=== PATIENT | male | born 1965 | race African-American/Black ===

== ENCOUNTER 2018-08-29 18:24 | Emergency (ER) | payer SELFPAY ==
[2018-08-29 18:32] VITALS: BP 118/83
[2018-08-29] MEDS ORDERED: ONDANSETRON 4 MG TAB.RAPDIS PO ONE (19:01)
[2018-08-29] MEDS ORDERED: ACETAMINOPHEN 325 MG TABLET PO ONE (19:11)
--- NOTE | 2018-08-29 19:11 | ER Document Report ---
HPI - HPI Time Seen by Provider: 08/29/18 18:51 Pain Level: 3 Notes: Patient is a 52-year-old male no significant past medical history who presents to the ED complaining of left medial ankle pain status post injury prior to arrival. Patient was wrestling with a heavy weights at practice when he injured his left ankle. Patient is not sure exactly what happened but may have twisted it. Patient states that he heard a pop and has had pain since then. Patient states that he is unable to weight-bear because of the pain. Pain does not radiate otherwise. Denies any drug allergies. No other concerns or complaints. Denies any headache, fever, head injury, neck pain, URI, sore throat, chest pain, palpitations, syncope, cough, shortness of breath, wheeze, dyspnea, abdominal pain, nausea/vomiting/diarrhea, urinary retention, dysuria, hematuria, loss of control of bowel or bladder, numbness/tingling, muscle paralysis, or rash. - ROS Systems Reviewed and Negative: Yes All other systems reviewed and negative - MUSCULOSKELETAL Musculoskeletal: REPORTS: Extremity pain - L ankle Past Medical History - Social History Smoking Status: Smoker,Current Status Unk Chew tobacco use (# tins/day): No Frequency of alcohol use: None Drug Abuse: None Family History: Reviewed & Not Pertinent Patient has suicidal ideation: No Patient has homicidal ideation: No Renal/ Medical History: Denies: Hx Peritoneal Dialysis Vertical Provider Document - CONSTITUTIONAL Agree With Documented VS: Yes Notes: PHYSICAL EXAMINATION: GENERAL: Well-appearing, well-nourished and in no acute distress. LUNGS: Breath sounds clear to auscultation bilaterally and equal. No wheezes rales or rhonchi. HEART: Regular rate and rhythm without murmurs, rubs, gallops. Musculoskeletal: Lt foot/ankle: + swelling medially. + associated ecchymosis and tenderness to the medial malleolus area. LROM to passive/active. Strength 4 +/5. N/V intact distal. No bony tenderness of the foot. Achilles intact. + tenderness to the proximal fibula. Extremities: No cyanosis, clubbing, or edema b/l. Peripheral pulses 2+. Capillary refill less than 3 seconds. NEUROLOGICAL: Normal speech. Normal sensory, motor exams PSYCH: Normal mood, normal affect. SKIN: see above. - INFECTION CONTROL TRAVEL OUTSIDE OF THE [place] IN LAST 30 DAYS: No Course - Re-evaluation Re-evalutation: 08/29/18 19:34 Dr. Martell was consulted due to the mortise disruption without obvious mention in the radiologist impression. We will obtain a prox fibula XR to further evaluate and consider speaking with Ortho. 08/29/18 20:21 There does appear to be a spiral proximal fibular fracture noted on XR making this a Maisonneuve fracture. I did call and speak with orthopedics, Dr. Toro, who would like a posterior short leg splint with sugar tong, crutches, nonweightbearing, elevation, and to call their office on Monday for evaluation and scheduling for surgery. Patient is an afebrile, well-hydrated with 52-year-old male who presents with a Maisonneuve fracture left ankle/fibula. Vitals are acceptable. PE is otherwise unremarkable for any neurovascular compromise, open fracture, septic joint, compartment syndrome. See XR result. Splint applied today and crutches provided. Pt given tylenol. He had morphine before he came in by a friend. Patient is nontoxic-appearing. No other labs or imaging warranted at this time based on H&P. Conservative measures otherwise for symptoms. Call orthopedics Monday for further evaluation and management. Return to the ED with any worsening/concerning symptoms otherwise as reviewed in discharge. Patient is in agreement. - Vital Signs Vital signs: Temp Pulse Resp BP Pulse Ox 98.4 F 98 14 118/83 99 08/29/18 18:30 08/29/18 18:30 08/29/18 18:30 08/29/18 18:30 08/29/18 18:30 Procedures - Immobilization Left Leg Time completed: 20:20 Pre-Proc Neuro Vasc Exam: Normal Immobilizer type: Short Leg Posterior - with sugar tong Performed by: PCT Post-Proc Neuro Vasc Exam: Normal, Unchanged from pre-exam Discharge - Discharge Clinical Impression: Maisonneuve fracture of left fibula Qualifiers: Encounter type: initial encounter Fracture type: closed Fracture alignment: nondisplaced Qualified Code(s): S82.865A - Nondisplaced Maisonneuve's fracture of left leg, initial encounter for closed fracture Condition: Stable Disposition: HOME, SELF-CARE Instructions: Use of Crutches ([facility]), Ice & Elevation ([facility]), Splint Precautions ([facility]) Additional Instructions: Rest, Ice, Compression, Elevation No weight-bearing* Use crutches/splint as directed Tylenol/ibuprofen as needed F/u with your PCP in 3-5 days for a recheck or as needed Call orthopedics on Monday for evaluation and further management. Return to the ED with any worsening symptoms and/or development of fever, headache, chest pain, palpitations, syncope, shortness of breath, trouble breathing, abdominal pain, n/v/d, muscle weakness/paralysis, numbness/tingling, swelling, redness, or other worsening symptoms that are concerning to you. Prescriptions: Oxycodone HCl/Acetaminophen [Percocet 5-325 mg Tablet] 1 tab PO QID #20 tab Referrals: [facility] ([facility]) [Provider Group] - 09/03/18
--- NOTE | 2018-08-29 19:21 | RADIOLOGY REPORT (SQ) ---
EXAM DESCRIPTION: ANKLE LEFT COMPLETE COMPLETED DATE/TIME: 08/29/2018 7:07 pm REASON FOR STUDY: left ankle pain s/p injury COMPARISON: None. NUMBER OF VIEWS: Three views. TECHNIQUE: AP, lateral, and oblique radiographic images acquired of the left ankle. LIMITATIONS: None. FINDINGS: MINERALIZATION: Normal. BONES: No acute fracture or dislocation. No worrisome bone lesions. JOINTS: There is widening of the medial joint space. SOFT TISSUES: No soft tissue swelling. No foreign body. OTHER: No other significant finding. IMPRESSION: Likely medial soft tissue injury. No fracture. TECHNICAL DOCUMENTATION: JOB ID: [id number] [employer]- All Rights Reserved Reading location - IP/workstation name: [email or web address]
--- NOTE | 2018-08-29 19:58 | RADIOLOGY REPORT (SQ) ---
EXAM DESCRIPTION: TIBIA FIBULA LEFT COMPLETED DATE/TIME: 08/29/2018 7:46 pm REASON FOR STUDY: eval left prox fibula d/t mortise gap of ankle COMPARISON: None. NUMBER OF VIEWS: Two views. TECHNIQUE: Two radiographic images acquired of the left tibia and fibula to include the knee and ank le in at least one projection. LIMITATIONS: None. FINDINGS: MINERALIZATION: Normal. BONES: Minimally displaced oblique fracture in the proximal left fibular metaphysis. No worrisome omar ne lesions. SOFT TISSUES: No obvious swelling or foreign body. OTHER: No other significant finding. IMPRESSION: Minimally displaced oblique fracture in the proximal left fibular metaphysis. TECHNICAL DOCUMENTATION: JOB ID: [id number] [employer]- All Rights Reserved Reading location - IP/workstation name: [employer]
== END 2018-08-29 20:36 | disposition home or self-care (01) ==
LOC: ER 18:24
DX: S82.865A Nondisplaced Maisonneuve's fracture of left leg, initial encounter for closed fracture (principal); X58.XXXA Exposure to other specified factors, initial encounter
CPT/HCPCS: 99283; 73610; 73590; 29515; S0119

== ENCOUNTER 2018-09-07 10:41 | Day surgery (SDC) | payer BC, OTHER ==
[~2018-09-07 10:41] MED LIST: CEFAZOLIN 2 GM/D5W RTU 2 GM/50 ML RTUPB IV ONE; CEFAZOLIN 2 GM/D5W RTU 2 GM/50 ML RTUPB IV PRN; CEFAZOLIN SODIUM 2 GM in DEXTROSE 5%-WATER 100 ML IV PRN; SUCCINYLCHOLINE CHLORIDE INJ 200 MG/10 ML VIAL ONE
--- NOTE | 2018-09-07 11:39 | RADIOLOGY REPORT (SQ) ---
EXAM DESCRIPTION: CHEST SINGLE VIEW COMPLETED DATE/TIME: 09/07/2018 11:30 am REASON FOR STUDY: PREOP COMPARISON: None. EXAM PARAMETERS: NUMBER OF VIEWS: One view. TECHNIQUE: Single frontal radiographic view of the chest acquired. RADIATION DOSE: NA LIMITATIONS: None. FINDINGS: LUNGS AND PLEURA: No opacities, masses or pneumothorax. No pleural effusion. MEDIASTINUM AND HILAR STRUCTURES: No masses. Contour normal. HEART AND VASCULAR STRUCTURES: Heart normal in size. Normal vasculature. BONES: No acute findings. HARDWARE: None in the chest. OTHER: No other significant finding. IMPRESSION: NO ACUTE RADIOGRAPHIC FINDING IN THE CHEST. TECHNICAL DOCUMENTATION: JOB ID: [id number] [employer]- All Rights Reserved Reading location - IP/workstation name: [email or web address]
[2018-09-07 12:28] LABS: HEMATOCRIT 36.7 % (37.9-51.0); HEMOGLOBIN 12.6 g/dL (13.5-17.0); MEAN CORPUSCULAR HEMOGLOBIN 29.2 pg (27.0-33.4); MEAN CORPUSCULAR HGB CONC 34.3 g/dL (32.0-36.0); MEAN CORPUSCULAR VOLUME 85 fl (80-97); PLATELET COUNT 444 10^3/uL (150-450); WHITE BLOOD COUNT 9.2 10^3/uL (4.0-10.5)
[2018-09-07 12:43] LABS: ANION GAP 10 (5-19); BLOOD UREA NITROGEN 16 mg/dL (7-20); CALCIUM 9.6 mg/dL (8.4-10.2); CARBON DIOXIDE 28 mmol/L (22-30); CHLORIDE 106 mmol/L (98-107); GLUCOSE 109 mg/dL (75-110); POTASSIUM 4.7 mmol/L (3.6-5.0); SODIUM 143.8 mmol/L (137-145)
[2018-09-07] MEDS ORDERED: BUPIVACAINE HCL 0.5 % INJ/PF 30 ML SDV ONE (12:48)
[2018-09-07] MEDS ORDERED: LIDOCAINE 2% INJ-PF (20 MG/ML) 10 ML AMPUL ONE (12:49)
[2018-09-07] MEDS ORDERED: MIDAZOLAM 2 MG/2 ML INJ ONE (12:49)
[2018-09-07] MEDS ORDERED: ONDANSETRON HCL INJ/PF 4 MG/2 ML SDV ONE (12:50)
[2018-09-07] MEDS ORDERED: HYDROMORPHONE HCL INJ/PF 2 MG/ML AMPULE ONE (12:50)
[2018-09-07] MEDS ORDERED: PROPOFOL INJ 200 MG/20 ML VIAL IV ONE (12:50)
[2018-09-07] MEDS ORDERED: DEXAMETHASONE SOD PHOSPHATE INJ 4 MG/1 ML VIAL ONE (12:50)
[2018-09-07] MEDS ORDERED: ACETAMINOPHEN 1,000 MG/100 ML RTUPB IV ONE (12:50)
[2018-09-07] MEDS ORDERED: PROMETHAZINE HCL INJ 25 MG/1 ML VIAL IV PRN (14:14)
[2018-09-07] MEDS ORDERED: ONDANSETRON HCL INJ/PF 4 MG/2 ML SDV IV PRN (14:14)
[2018-09-07] MEDS ORDERED: FENTANYL CITRATE INJ/PF 100 MCG/2 ML AMPUL IV PRN ×3 (14:14)
[2018-09-07] MEDS ORDERED: DIPHENHYDRAMINE HCL 50 MG/ML VIAL IV PRN (14:14)
[2018-09-07] MEDS ORDERED: MEPERIDINE HCL/PF INJ 25 MG/1 ML DISP.SYRIN IV PRN (14:14)
--- NOTE | 2018-09-07 14:31 | Discharge Summary ---
Discharge Summary (SDC) - Discharge Final Diagnosis: Syndesmotic repair left ankle Date of Surgery: 09/07/18 Discharge Date: 09/07/18 Condition: Good Treatment or Instructions: Keep the splint dry clean and intact until follow-up Keep the left lower extremity iced and elevated Nonweightbearing with crutches Follow-up in the office in 10-14 days Prescriptions: Oxycodone HCl/Acetaminophen [Percocet 5-325 mg Tablet] 1 - 2 tab PO ASDIR PRN # 40 tablet PRN Reason: Discharge Diet: As Tolerated Respiratory Treatments at Home: Deep Breathing/Coughing Discharge Activity: No Driving, Keep Legs Elevated, Other - Weight-bear left lower extremity with crutches Home Care Assistance: None Needed Adaptive Devices on Discharge: Axillary Crutches Report the Following to Your Physician Immediately: Shortness of Breath, Vomiting, Increase in Pain, Fever over 101 Degrees, Unusual Bleeding, Redness, Swelling, Warmth, Increased Soreness, Drainage-Yellow, Drainage-Rodriguez, Drainage- Green, Drainage-Foul Smelling
[2018-09-07] MEDS ORDERED: FENTANYL CITRATE INJ/PF 100 MCG/2 ML AMPUL ONE (14:35)
[2018-09-07] MEDS ORDERED: OXYCODONE-ACETAMINOPHEN 5-325 MG TABLET PO PRN ×2 (14:55)
--- NOTE | 2018-09-07 15:24 | Operative Report ---
Operative Report DATE OF SURGERY: 09/07/18 PREOPERATIVE DIAGNOSIS: Left Maisonneuve fracture(proximal fibula fracture with widening of the ankle mortise) POSTOPERATIVE DIAGNOSIS: Same OPERATION: Syndesmotic repair left ankle SURGEON: IRIS LYNNE ANESTHESIA: GA TISSUE REMOVED OR ALTERED: None COMPLICATIONS: None ESTIMATED BLOOD LOSS: 10 mL INTRAOPERATIVE FINDINGS: As above PROCEDURE: Patient received preoperative antibiotics in the holding area and then was taken to the operating room where he was successfully given general anesthetic. Splint was removed from the left lower extremity. Bump was placed under the left buttocks and the thigh tourniquet was applied to left lower extremity. Left lower extremity was prepped and draped in a normal sterile surgical fashion. Timeout was done identifying the left ankle as the correct site. Esmarch was used to examined the extremity and the tourniquet was inflated to 300 mmHg. C-arm pictures were taken showing the wiring of the syndesmosis and medial clear space. I used a freer elevator to monica the ankle joint 1.5 cm above the ankle joint and 3 cm above the ankle joint. This allowed me then to do a 1 inch incision laterally over the lateral malleolus which was able to dissect down to the fibula successfully. Large periarticular clamp was used to reduce the syndesmosis and while the syndesmosis was reduced I then used a guide pin to place my location on the first tightrope. Once I was happy with the location and then proceeded to use a cannulated drill to drill all 4 cortices. This was removed and then the tightrope was passed through the predrilled hole then passed through the medial ankle through the skin and successfully deployed the tightrope. I was able to flip it on the medial aspect and then cinched down and tighten the syndesmosis. The peritoneal cath were removed and the syndesmosis stayed reduced. I repeated the step above for the second syndesmotic tightrope. AP and lateral pictures were taken showing a proper deployment and reduction and fixation. At this point I proceeded to close the lateral incision using 0 Vicryl 3-0 Vicryl and then 3-0 nylon for skin. Steri-Strips applied over poke holes on the medial side and Xeroform for the lateral incision. 4 x 4 dressing soft roll was applied and the tourniquet was let down at 34 minutes. A posterior short splint was applied with the knee neutral and overwrapped and Osmani bandage. Once the cast had hardened drapes were removed and the patient was awoken and sent to PACU in stable condition.
[2018-09-07] MEDS ORDERED: OXYCODONE-ACETAMINOPHEN 5-325 MG TABLET ONE (15:54)
--- NOTE | 2018-09-07 15:58 | RADIOLOGY REPORT (SQ) ---
EXAM DESCRIPTION: ANKLE LEFT AP/LATERAL; NO CHG FLUORO COMPLETED DATE/TIME: 09/07/2018 3:33 pm REASON FOR STUDY: ORIF LEFT ANKLE S82.425A NONDISP TRANSVERSE FRACTURE OF SHAFT OF LEFT FIBULA S82. 55XA NONDISP FX OF MEDIAL MALLEOLUS OF LEFT TIBIA, INIT COMPARISON: Left ankle radiographs 08/29/2018 FLUOROSCOPY TIME: 30 seconds 2 digital C-arm images saved to PACS. TECHNIQUE: Intra-operative images acquired during surgical procedure to evaluate progress. NUMBER OF IMAGES: 2 digital C-arm images LIMITATIONS: None. FINDINGS: Intra procedural imaging and fluoro left ankle during fixation of the distal tibia-fibular syndesmosis IMPRESSION: Intra procedural imaging and fluoro COMMENT: Quality ID 145: Final reports for procedures using fluoroscopy that document radiation exp osure indices, or exposure time and number of fluorographic images (if radiation exposure indices are not available) Please consult full operative report of the attending physician for description of the procedure. TECHNICAL DOCUMENTATION: JOB ID: [id number] [employer]- All Rights Reserved Reading location - IP/workstation name: [email or web address]
--- NOTE | 2018-09-07 15:58 | RADIOLOGY REPORT (SQ) ---
EXAM DESCRIPTION: ANKLE LEFT AP/LATERAL; NO CHG FLUORO COMPLETED DATE/TIME: 09/07/2018 3:33 pm REASON FOR STUDY: ORIF LEFT ANKLE S82.425A NONDISP TRANSVERSE FRACTURE OF SHAFT OF LEFT FIBULA S82. 55XA NONDISP FX OF MEDIAL MALLEOLUS OF LEFT TIBIA, INIT COMPARISON: Left ankle radiographs 08/29/2018 FLUOROSCOPY TIME: 30 seconds 2 digital C-arm images saved to PACS. TECHNIQUE: Intra-operative images acquired during surgical procedure to evaluate progress. NUMBER OF IMAGES: 2 digital C-arm images LIMITATIONS: None. FINDINGS: Intra procedural imaging and fluoro left ankle during fixation of the distal tibia-fibular syndesmosis IMPRESSION: Intra procedural imaging and fluoro COMMENT: Quality ID 145: Final reports for procedures using fluoroscopy that document radiation exp osure indices, or exposure time and number of fluorographic images (if radiation exposure indices are not available) Please consult full operative report of the attending physician for description of the procedure. TECHNICAL DOCUMENTATION: JOB ID: [id number] [employer]- All Rights Reserved Reading location - IP/workstation name: [email or web address]
[2018-09-07 16:33] VITALS: BP 163/96
--- NOTE | 2018-09-10 18:38 | EKG REPORT ---
SEVERITY:- NORMAL ECG - SINUS RHYTHM : Confirmed by: Zayda Heath 10-Sep-2018 18:37:20
== END 2018-09-07 16:30 | disposition home or self-care (01) ==
LOC: OROUT 10:41
PROVIDERS: ATTEND Orthopaedic Surgery
PROC: 0SSG04Z Reposition Left Ankle Joint with Internal Fixation Device, Open Approach (ICD-10-PCS; principal; 2018-09-07 13:00)
DX: S82.425A Nondisplaced transverse fracture of shaft of left fibula, initial encounter for closed fracture (principal); S82.55XA Nondisplaced fracture of medial malleolus of left tibia, initial encounter for closed fracture
CPT/HCPCS: 36415; 85027; 80048; 73600; 71045; 93005; 93010; 27829; C1713; J2250; J3490 ×2; J1100; J3010; J1170; J0330; J2405; J2704; J0690; J0131; 01480